=== PATIENT | female | born 2000 | race Caucasian/White ===

== ENCOUNTER 2024-07-22 08:24 | Outpatient (AMB) | payer BC, SELFPAY ==
--- NOTE | 2024-07-22 08:25 | AM.OFFWIN_ITS ---
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 Patient Tobacco Use Status: Never used Tobacco Allergies No Known Allergies Allergy (Verified 07/22/24 08:30) Do you need a note to return to daycare/school/sports/work: Yes HPI HPI Comments History of Present Illness Details 24 y/o female patient who [facility] with c/o SOB, Wheezing, Chest tightness and cough since Friday. She is Asthmatic and currently only uses Rescue Inhaler that does not work well. [facility] Medical History (Updated 07/22/24 @ 08:54 by Ynes Gonzales NP) Wheezing on auscultation Social History Patient Tobacco Use Status: Never used Tobacco Review of Systems Const All systems reviewed & are unremarkable except as noted in HPI and below Physical Exam Vital Signs: Last Vital Signs Pulse 95 07/22/24 08:28 BP 120/82 07/22/24 08:28 Pulse Ox 97 07/22/24 08:28 Oxygen Delivery Method Room Air 07/22/24 08:28 BMI result Body Mass Index 49.3 Const General: cooperative and no acute distress Nutritional Appearance: obese Orientation/consciousness: patient oriented x3 Resp Effort & Inspection: normal respiratory effort, audible wheezes and Actively coughing Auscultation: no crackles, no rales, rhonchi throughout and wheezes throughout Cardio Heart sounds: S1 normal heart sound present and S2 normal heart sound present Neuro General: patient oriented x3 Office Procedures Nebulizer Treatment Nebulizer Treatment [id number] RX initial, or Nebulizer Subsequent Treatment Office Meds ipratropium 0.5 mg-albuterol 3 mg (2.5 mg base)/3 mL nebulization soln Performing Provider: Ynes Gonzales NP Performing Location: [facility] Administered by: Ynes Gonzales NP on 07/22/24 09:00 Dose Route Admin Location Dispensed Lot Number Expiration Date NDC Agricultural [employer] 3 mL inhalation 3 mL [id number] 01/01/25 2754-0381-79 [facility] Assessment & Plan Assessment & Plan (1) Asthma with acute exacerbation: Code(s): J45.901 - Unspecified asthma with (acute) exacerbation Qualifiers: Asthma persistence: persistent Asthma severity: moderate Qualified Code(s): J45.41 - Moderate persistent asthma with (acute) exacerbation Plan: Ordered DuoNeb in office Tx Ordered Abx Ordered Prednisone (2) Wheezing on auscultation: Code(s): R06.2 - Wheezing Plan: Ordered DuoNeb in office Tx Ordered Abx Ordered Prednisone Orders: Orders AMB Nebulizer Treatment Today J45.41 - Moderate persistent asthma with (acute) exacerbation, R06.2 - Wheezing Medications: New azithromycin 500 mg PO DAILY 5 days 5 tabs 0RF J45.41 - Moderate persistent asthma with (acute) exacerbation albuterol sulfate 90 mcg/actuation 2 puffs inhalation Q4-6H PRN 8.5 grams 0RF shortness of breath or wheezing J45.41 - Moderate persistent asthma with (acu te) exacerbation, R06.2 - Wheezing prednisone 50 mg PO DAILY 5 days 5 tabs 0RF J45.41 - Moderate persistent asthma with (acute) exacerbation, R06.2 - Wheezing fluticasone furoate-vilanterol 100-25 mcg/dose (Breo Ellipta) 1 inh inhalation DAILY 60 ea 1RF J45.41 - Moderate persistent asthma with (acute) exacerbation, R06.2 - Wheezing doxycycline hyclate 100 mg PO BID 10 days 20 caps 0RF J45.41 - Moderate persistent asthma with (acute) exacerbation Coding Level of Care Code New Pt Level 4 (90064) Diagnoses Moderate persistent asthma with acute exacerbation J45.41 Asthma persistence: persistent Asthma severity: moderate Wheezing on auscultation R06.2 CPT Codes Nebulizer Treatment - Nebulizer Treatment, initial or subsequent: 81294- Nebulizer/MDI RX initial, or Nebulizer Subsequent Treatment ([id number]) Time Spent (min) 20
[2024-07-22 08:28] VITALS: BP 120/82; PULSE 95; O2SAT 97; BMI 49.3
== END 2024-07-22 08:57 | disposition home or self-care (01) ==
PROVIDERS: Visit Provider Nurse Practitioner Family
DX: J45.41 Moderate persistent asthma with (acute) exacerbation (principal); R06.2 Wheezing
CPT/HCPCS: 94640; 99204; J7620

== ENCOUNTER 2024-08-22 10:58 | Emergency (ER) | payer BC, SELFPAY ==
--- NOTE | ~2024-08-22 | XR_ITS ---
EXAMINATION: XR CHEST 1 VIEW CLINICAL INFORMATION: Pneumonia? COMPARISON: None TECHNIQUE: Single portable frontal view. Tubes and lines: None Lungs and pleura: Both lungs are clear. Heart and mediastinum: The mediastinum is within normal limits.. Bones/soft tissue: Skeletal structures included are normal for patient's age. XR/XR chest 1V IMPRESSION: No radiographic evidence of acute cardiopulmonary disease. Electronically signed by: Juan Francisco Munoz MD 08/22/2024 02:31 PM EDT
--- NOTE | ~2024-08-22 | US_ITS ---
EXAMINATION: US TRIPLEX LOWER EXTREMITY, BILATERAL CLINICAL INFORMATION: Bilateral lower extremity nodules COMPARISON: None available. TECHNIQUE: Color-flow triplex imaging with spectral analysis and compression Doppler were performed on the bilateral lower extremities. FINDINGS: Respiratory variation, normal compression and augmented flow are noted throughout the bilateral lower extremities. The visualized common femoral vein, superficial femoral vein, profunda femoral vein, popliteal vein and midcalf peroneal and posterior tibial venous segments show no evidence of deep venous thrombosis bilaterally. There is no Torres's cyst. US/US venous duplex LE BI IMPRESSION: No evidence of deep venous thrombosis involving the bilateral lower extremities. Electronically signed by: Lakshmi Goins MD 08/22/2024 12:26 PM EDT
--- NOTE | ~2024-08-22 | US_ITS ---
EXAMINATIONS: US EXTREMITY MUSCULOSKELETAL CLINICAL INFORMATION: bilateral leg nodules COMPARISON: None Technique: High frequency linear transducer utilized, Ultrasound soft tissue right legs areas of interest on both sides performed as outlined related to patient. FINDINGS: High-frequency evaluation of the area of palpable lump confirm solid homogeneous isoechoic pseudoencapsulated yaniv, situated within the subcutaneous fat measuring approximately 0.7 x 0.9 x 0.4 cm correlate with the area of palpable lump, although nonspecific, the ultrasound characteristics suggest most commonly lipomas. No other mass lesion. No adjacent cyst, lymph node, or other soft tissue anomalies US/US extremity nonvascular IMPRESSION: Probably subcutaneous lipoma, right leg cannot rule out other rare soft tissue neoplasms including liposarcoma, this could be further characterize with contrast enhanced MRI, if not performed would recommend attention to continuous surveillance with physical exam and follow-up ultrasound as needed to confirm stability. No discrete measurable mass in the left leg. Electronically signed by: Juan Francisco Munoz MD 08/22/2024 02:24 PM EDT
[2024-08-22 11:02] VITALS: BP 135/77; PULSE 106; RESP 20; TEMP 36.6; O2SAT 99; BMI 41.2
--- NOTE | 2024-08-22 11:10 | ECG_ITS ---
Test Reason : SOB Blood Pressure : / mmHG Vent. Rate : 094 BPM Atrial Rate : 094 BPM P-R Int : 132 ms QRS Dur : 084 ms QT Int : 370 ms P-R-T Axes : 069 063 020 degrees QTc Int : 462 ms Normal sinus rhythm T wave abnormality, consider inferior ischemia Abnormal ECG No previous ECGs available Referred By: Sachin Springer Electronically Signed By:ALYSIA WALLACE
--- NOTE | 2024-08-22 11:12 | ED_ITS ---
HPI - General Adult General Chief complaint: Dyspnea Stated complaint: Diff breathing Time Seen by Provider: 08/22/24 14:31 Source: patient and family ( Mother) Mode of arrival: ambulatory Limitations: no limitations History of Present Illness ED Provider: DR. Smith HPI narrative: 24-year-old female history of asthma presented with 3 days history of difficulty breathing, shortness of breath, nonproductive coughing, no fever, no chills, no recent travel, no lower extremity swelling or tenderness. Patient was seen and evaluated at urgent Care before coming to the ER received 2 nebulizer treatment and 40 mg of prednisone and was instructed to come to the ED for further evaluation because patient was satting 92% on room air. No prior history of hospitalization or intubation for bad asthma. Related Data Previous Rx's ?Medication ?Instructions ?Recorded albuterol sulfate 90 mcg/actuation 2 puff inhalation Q6H PRN 08/22/24 aerosol inhaler shortness of breath or wheezing #8.5 grams azithromycin 250 mg tablet See Rx Instructions PO .COMPLEX #6 08/22/24 (Zithromax Z-Jean-Pierre) tabs prednisone 20 mg tablet 20 mg PO BID #10 tabs 08/22/24 Allergies Allergy/AdvReac Type Severity Reaction Status Date / Time No Known Allergies Allergy Verified 08/22/24 11:09 Review of Systems 2 Review of Systems: all other systems are reviewed and are negative Constitutional: Reports as per HPI and Reports no additional constitutional complaints Eyes: Reports as per HPI and Reports no additional eye complaints Reports system reviewed and no additional complaints, except as documented Cardiovascular: Reports as per HPI and Reports no additional cardiovascular complaints Respiratory: Reports as per HPI and Reports no additional respiratory complaints Gastrointestinal: Reports as per HPI and Reports no additional gastrointestinal complaints Genitourinary: Reports no additional female genitourinary complaints Musculoskeletal: Reports no additional musculoskeletal complaints Skin/Breast: Reports system reviewed and no additional complaints, except as docu Psychiatric: Reports no additional psychiatric complaints Endocrine: Reports no additional endocrine complaints Hematologic/Lymphatic: Reports no additional hematologic/lymphatic complaints Allergic/Immunologic: Reports no additional allergic/immunologic complaints Reports system reviewed and no additional complaints, except as documented and Reports Abnormal speech present PMFSH Social History Social History Smoked in Last 30 Days: No Use of substances other than those prescribed or required for medical reasons: No Substance Use Type: Marijuana Substance Use Frequency: Daily Advance Directives: No Advance Directives Information Provided: Yes Patient : No Physical Exam ED Vital Signs: Vital Signs - 24 hr 08/22/24 11:02 08/22/24 13:56 08/22/24 14:04 Temperature 97.8 F 98.4 F Pulse Rate 106 H 84 116 H Respiratory Rate 20 18 Blood Pressure 135/77 143/66 H Pulse Oximetry 99 95 Oxygen Delivery Method Room Air Room Air 08/22/24 15:39 08/22/24 15:52 Temperature 98 F Pulse Rate 87 96 Respiratory Rate 18 18 Blood Pressure 113/66 Pulse Oximetry 95 Oxygen Delivery Method Room Air BMI result Body Mass Index 41.2 Vital signs have been reviewed and appear to be correct. Blood pressure elevated. Heart rate normal. Respiratory rate normal. Temperature normal. Oxygen saturation normal. Appearance: Alert. Oriented X3. No acute distress. Head: Normal external exam. Normocephalic. Atraumatic. No Vance signs noted. No raccoon eyes noted Eyes: PERRLA. EOMI. Conjunctiva and sclera normal. Eyelids normal. ENT: TM's Normal. Pharynx normal. Uvula midline. Moist mucous membranes. No trismus noted. No drooling noted. No muffled voice noted. Neck: Normal inspection. Neck supple. FROM. No adenopathy. Thyroid Normal. No meningeal signs. No neck mass noted. CVS: Normal heart rate and rhythm. Heart sound normal. No murmurs noted. Pulses normal throughout. Respiratory: No respiratory distress. Painless inspiration. Breath sounds normal. mild expiratory wheezing with prolonged expiration, no respiratory distress. Chest nontender. No accessory muscle usage noted or decreased air movement noted. Abdomen: Soft and nontender. Bowel sounds normal in all 4 quadrants. No distention noted. No organomegaly noted. No visible injury noted. Back: No CVA tenderness. Full range of motion noted. Skin: Skin warm and dry. Normal skin color. Normal skin turgor. No rashes/lesions/lacerations noted. Extremities: No lower extremity edema. Extremities exhibit normal range of motion. Extremities nontender. Neuro: Oriented X 3. Cranial nerve exam: II-XII are grossly intact No motor deficit. No sensory deficit. Reflexes normal. Course Course Course Narrative: RME: DOne by TOYIN Springer. 24-year-old female sent from urgent care for evaluation of shortness of breath. Patient states O2 saturation as low as 92% at urgent care. Patient states coughing and shortness of breath on exertion. Patient denies any fever or chills. Patient denies any recent long travel recent surgery. Patient states no relief with albuterol and steroids. Patient has secondary complaint his 1 month of bilateral lower extremity red nodules on anterior aspect of legs. Patient denies any calf pain. Lungs are positive for mild expiratory wheezing and diminished breath sounds. Bilateral lower extremity negative for swelling or pitting edema but positive for anterior nodules on palpation with some redness. Patient states redness has improved. EKG labs chest x-ray ultrasound ordered. Reevaluation(s) Reevaluation #1: Acute asthma exacerbation, normal O2 sat on room air , no acute respiratory distress. Patient is subjectively feels better after given bronchodilator and 40 mg of prednisone. Discharge Z-Jean-Pierre/ prednisone/ albuterol. Time: 15:23 Medications Administered Discontinued Medications Generic Name Dose Route Start Last Admin Trade Name Sheldonq PRN Reason Stop Dose Admin Albuterol Sulfate 2.5 mg/ 0 mg 08/22/24 13:51 08/22/24 13:54 Albuterol/Ipratropium 3 ml INHALE 08/22/24 13:52 5 dose ONCE ONE Administration Albuterol Sulfate 2.5 mg/ 0 mg 08/22/24 15:17 08/22/24 15:36 Albuterol/Ipratropium 3 ml INHALE 08/22/24 15:18 5 dose ONCE ONE Administration Prednisone 40 mg 08/22/24 15:09 08/22/24 15:56 Prednisone 20 Mg Tablet PO 08/22/24 15:10 40 mg ONCE ONE Administration Medical Decision Making Differential Diagnosis Differential Diagnoses: The differential diagnosis associated with the presentation includes ( Acute bronchitis, pneumonia, pneumothorax, pleural effusion, asthma exacerbation, viral upper respiratory infection, DVT.) Admission/Observation Consideration of admission/observation: Escalation of care including admission/observation considered Lab Data MDM Lab Attestation statement: I reviewed the patient's lab results. 08/22/24 11:27 08/22/24 11:27 Labs: Lab Results 08/22/24 Range/Units 11:27 WBC 7.7 (4.8-10.8) X10*3/uL RBC 4.89 (4.20-5.50) X10*6/uL Hgb 14.2 (12.0-16.0) g/dl Hct 41.0 (37.0-47.0) % MCV 83.8 (80.0-98.0) fL MCH 29.0 (27.0-33.0) pg MCHC 34.6 (31.0-35.0) g/dl RDW 11.9 (11.0-16.0) % Plt Count 248 (160-400) X10*3/uL MPV 11.1 (9.4-12.3) fL Immature Gran % (Auto) 0.4 (0.0-0.4) % Neut % (Auto) 70.8 (45-73) % Lymph % (Auto) 15.9 L (20-40) % Dale % (Auto) 6.8 (2-11) % Eos % (Auto) 5.6 H (0-4) % Baso % (Auto) 0.5 (0-2) % Lymph # (Auto) 1.2 (1.2-4.9) X10*3/uL Dale # (Auto) 0.5 (0.1-1.2) X10*3/uL Eos # (Auto) 0.4 (0.0-0.4) X10*3/uL Baso # (Auto) 0.0 (0.0-0.2) X10*3/uL Abs Immat Gran (auto) 0.03 (0.00-0.03) X10*3/uL Absolute Neuts (auto) 5.4 (2.0-8.3) x10*3/uL Absolute Nucleated RBC 0.000 (0.0-0.012) X10*3/uL Nucleated RBC % (auto) 0.0 (0.0-0.2) /100WBC ESR 4 (0-20) MM/HR PT 11.2 (10.9-12.4) SEC INR 1.0 (0.9-1.1) APTT 29.3 (26.0-36.8) SEC Sodium 139 (135-145) mmol/L Potassium 3.3 (3.3-5.1) mmol/L Chloride 109 H (96-108) mmol/L Carbon Dioxide 21 L (22-29) mmol/L Anion Gap 12 (12-20) BUN 13 (9-16) mg/dL Creatinine 0.88 (0.5-1.4) mg/dL Estim Creat Clear Calc 116.7 Estimated GFR > 60 Random Glucose 104 (60-115) mg/dL Calcium 9.2 (8.4-10.2) mg/dL Total Bilirubin 0.9 (0.0-1.0) mg/dL AST 13 (5-31) U/L ALT 11 (0-31) U/L Alkaline Phosphatase 63 (39-117) U/L Troponin I High Sens < 2.7 (<3.5-17.0) ng/L C-Reactive Protein 0.38 (< or = 0.50) mg/dL B-Natriuretic Peptide 16 (<100) pg/mL Total Protein 6.7 (6.5-8.0) g/dL Albumin 4.0 (3.5-5.0) g/dL Beta HCG, Quant < 2 mIU/mL Influenza Type A (PCR) NEGATIVE (Negative) Influenza Type B (PCR) NEGATIVE (Negative) RSV RNA Qual (PCR) NEGATIVE (Negative) SARS-CoV-2 RNA (RT-PCR) NEGATIVE (Negative) Independent Interpretation I performed an independent interpretation of an: Plain X-Ray ( Chest x-ray: No acute intrathoracic pathology.) and Ultrasound ( Venous ultrasound no DVT.) Radiology Impression Discussion of test interpretation with radiology: I have reviewed the radiologist's reading. Discharge Plan Discharge Clinical Impression: Asthma with exacerbation Patient Disposition: Home, Self-Care Instructions: Asthma (ED) Prescriptions: New prednisone 20 mg tablet 20 mg PO BID Qty: 10 0RF azithromycin [Zithromax Z-Jean-Pierre] 250 mg tablet See Rx Instructions .ROUTE .COMPLEX Qty: 6 0RF Rx Instructions: For 250 mg dose pack: take 500 mg today (day 1), then 250 mg for 4 days (days 2-5) albuterol sulfate 90 mcg/actuation HFA aerosol inhaler 2 puff inhalation Q6H PRN (Reason: shortness of breath or wheezing) Qty: 8.5 0RF Stand Alone Forms: Work/School Release Discharge Date/Time: 08/22/24 16:06 Print Language: Estonian
[2024-08-22 11:32] LABS: MANUAL DIFF FLAG NO
[2024-08-22 11:33] LABS: Basophils Percent Auto 0.5 % (0-2); Eosinophils Absolute Auto 0.4 X10*3/uL (0.0-0.4); Eosinophils Percent Auto 5.6 % (0-4); Hemoglobin 14.2 g/dl (12.0-16.0); Imm Gran Abs Auto 0.03 X10*3/uL (0.00-0.03); Imm Gran Pct Auto 0.4 % (0.0-0.4); Lymphocytes Absolute Auto 1.2 X10*3/uL (1.2-4.9); Lymphocytes Percent Auto 15.9 % (20-40); Mean Corpuscular HGB Conc 34.6 g/dl (31.0-35.0); Mean Corpuscular Volume 83.8 fL (80.0-98.0); Mean Platelet Volume 11.1 fL (9.4-12.3); Monocytes Absolute Auto 0.5 X10*3/uL (0.1-1.2); Monocytes Percent Auto 6.8 % (2-11); Neutrophils Absolute Auto 5.4 x10*3/uL (2.0-8.3); Neutrophils Percent Auto 70.8 % (45-73); Platelet Count 248 X10*3/uL (160-400); Red Blood Count 4.89 X10*6/uL (4.20-5.50); Red Cell Distribution Width 11.9 % (11.0-16.0); White Blood Count 7.7 X10*3/uL (4.8-10.8)
[2024-08-22 11:39] LABS: Prothrombin Time 11.2 SEC (10.9-12.4)
[2024-08-22 11:41] LABS: Partial Thromboplastin Time 29.3 SEC (26.0-36.8)
[2024-08-22 11:47] LABS: Alanine Aminotransferase 11 U/L (0-31); Alkaline Phosphatase 63 U/L (39-117); Anion Gap 12 (12-20); Aspartate Amino Transferase 13 U/L (5-31); Bilirubin Total 0.9 mg/dL (0.0-1.0); Blood Urea Nitrogen 13 mg/dL (9-16); C Reactive Protein 0.38 mg/dL (< or = 0.50); Calcium 9.2 mg/dL (8.4-10.2); Carbon Dioxide 21 mmol/L (22-29); Chloride 109 mmol/L (96-108); Creatinine Clr Calc Pharmacy 116.7; Estimated Glomerular Filt Rate > 60; Glucose Random 104 mg/dL (60-115); Potassium 3.3 mmol/L (3.3-5.1); Sodium 139 mmol/L (135-145); Total Protein 6.7 g/dL (6.5-8.0)
[2024-08-22 11:52] LABS: B Type Natriuretic Peptide 16 pg/mL (<100)
[2024-08-22 11:56] LABS: HCG Quantitative < 2 mIU/mL; Troponin-I High Sensitivity < 2.7 ng/L (<3.5-17.0)
[2024-08-22 12:10] LABS: Influenza A PCR NEGATIVE (Negative); Influenza B PCR NEGATIVE (Negative); Resp Syncy Virus RNA Qual PCR NEGATIVE (Negative); SARS COV2 PCR INHOUSE NEGATIVE (Negative)
[2024-08-22 12:15] LABS: Erythrocyte Sedimentation Rate 4 MM/HR (0-20)
[2024-08-22] MEDS: Albuterol Sulfate 2.5 MG, Albuterol/Iprat 2.5/0.5MG 3 ML 3 ML INHALE ×2 (13:54→15:36)
[2024-08-22 13:56] VITALS: PULSE 84; RESP 18; O2SAT 97
[2024-08-22 14:04] VITALS: BP 143/66; PULSE 116; TEMP 36.9; O2SAT 95
--- NOTE | 2024-08-22 14:07 | PC.NURSE ---
Pt comes to ED today with c/o SOB, wheezing, and pain with inspiration. VSS, afebrile, A&Ox3. RT at bedside with updraft in process. Awaiting imaging results.
[2024-08-22 15:39] VITALS: PULSE 87; RESP 18; O2SAT 96
[2024-08-22 15:52] VITALS: BP 113/66; PULSE 96; RESP 18; TEMP 36.6; O2SAT 95
[2024-08-22] MEDS: predniSONE 20 MG TABLET 40 MG PO (15:56)
== END 2024-08-22 16:06 | disposition home or self-care (01) ==
PROVIDERS: Physician Assistant; Emergency Provider Emergency Medicine
DX: J45.901 Unspecified asthma with (acute) exacerbation (principal); R06.02 Shortness of breath; R05.9 Cough, unspecified; R60.0 Localized edema; R10.2 Pelvic and perineal pain; R94.31 Abnormal electrocardiogram [ECG] [EKG]; Z03.818 Encounter for observation for suspected exposure to other biological agents ruled out; Z79.899 Other long term (current) drug therapy
CPT/HCPCS: 0241U; 36415; 71045; 76882; 80053; 83880; 84484; 84702; 85025; 85610; 85652; 85730; 86140; 93005; 93970; 94640; 99284; 99285

== ENCOUNTER 2024-09-22 12:29 | Outpatient (AMB) | payer BC, SELFPAY ==
[2024-09-22 12:32] VITALS: BP 104/76; PULSE 78; O2SAT 95; BMI 41.7
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
== END 2024-09-22 13:15 | disposition home or self-care (01) ==
PROVIDERS: Visit Provider Internal Medicine
DX: J45.40 Moderate persistent asthma, uncomplicated (principal); E66.01 Morbid (severe) obesity due to excess calories; F33.41 Major depressive disorder, recurrent, in partial remission; Z68.41 Body mass index [BMI] 40.0-44.9, adult; Z76.89 Persons encountering health services in other specified circumstances; Z86.59 Personal history of other mental and behavioral disorders; F43.10 Post-traumatic stress disorder, unspecified; K21.9 Gastro-esophageal reflux disease without esophagitis; R53.83 Other fatigue; R21 Rash and other nonspecific skin eruption

== ENCOUNTER → 2024-09-22 12:29 | Outpatient (BNVA) | payer BC, SELFPAY | PROVIDERS: Visit Provider Internal Medicine | DX: Z76.89 Persons encountering health services in other specified circumstances (principal); J45.40 Moderate persistent asthma, uncomplicated; E66.01 Morbid (severe) obesity due to excess calories; Z68.41 Body mass index [BMI] 40.0-44.9, adult; F33.41 Major depressive disorder, recurrent, in partial remission; Z23 Encounter for immunization; F43.10 Post-traumatic stress disorder, unspecified; K21.9 Gastro-esophageal reflux disease without esophagitis; R21 Rash and other nonspecific skin eruption; Z86.59 Personal history of other mental and behavioral disorders | CPT/HCPCS: 90471; 90656; 96127 ==

== ENCOUNTER 2024-09-23 07:49 | Outpatient (REF) | payer BC, SELFPAY ==
[2024-09-23 10:12] LABS: MANUAL DIFF FLAG NO
[2024-09-23 10:17] LABS: Basophils Percent Auto 0.8 % (0-2); Eosinophils Absolute Auto 0.4 X10*3/uL (0.0-0.4); Eosinophils Percent Auto 8.3 % (0-4); Hematocrit 43.3 % (37.0-47.0); Hemoglobin 14.3 g/dl (12.0-16.0); Imm Gran Abs Auto 0.01 X10*3/uL (0.00-0.03); Imm Gran Pct Auto 0.2 % (0.0-0.4); Lymphocytes Absolute Auto 1.6 X10*3/uL (1.2-4.9); Lymphocytes Percent Auto 33.1 % (20-40); Mean Corpuscular Volume 84.9 fL (80.0-98.0); Mean Platelet Volume 11.3 fL (9.4-12.3); Monocytes Absolute Auto 0.4 X10*3/uL (0.1-1.2); Monocytes Percent Auto 8.3 % (2-11); Neutrophils Absolute Auto 2.5 x10*3/uL (2.0-8.3); Neutrophils Percent Auto 49.3 % (45-73); Platelet Count 322 X10*3/uL (160-400); Red Cell Distribution Width 11.9 % (11.0-16.0)
[2024-09-23 10:44] LABS: Alanine Aminotransferase 17 U/L (0-31); Albumin Level 3.9 g/dL (3.5-5.0); Alkaline Phosphatase 62 U/L (39-117); Anion Gap 10 (12-20); Aspartate Amino Transferase 24 U/L (5-31); Bilirubin Total 0.9 mg/dL (0.0-1.0); Blood Urea Nitrogen 12 mg/dL (9-16); Calcium 9.1 mg/dL (8.4-10.2); Carbon Dioxide 25 mmol/L (22-29); Chloride 107 mmol/L (96-108); Cholesterol 204 mg/dL (<200); Estimated Glomerular Filt Rate > 60; Glucose Fasting 99 mg/dL (60-99); HDL Cholesterol 63 mg/dL (>40); LDL Cholesterol Calculated 125 mg/dL (<100); Sodium 138 mmol/L (135-145); Total Protein 6.6 g/dL (6.5-8.0); Triglycerides 80 mg/dL (<150)
[2024-09-23 10:52] LABS: Appearance Urine Clear; Color Urine Yellow; Glucose Urine UA Negative (Negative); Leukocyte Esterase Urine Negative (Negative); Nitrite Urine Negative (Negative); PH 6.5 (5.0-9.0); Urine Blood Negative (Negative); Urine Ketones Negative (Negative); Urine Protein Negative (Neg-Trace)
[2024-09-23 11:06] LABS: Ferritin 31 ng/mL (10-122); TSH reflex Free T4 1.73 uIU/mL (0.32-4.0)
[2024-09-23 11:11] LABS: Vitamin B12 1185 pg/mL (200-900)
[2024-09-27 16:03] LABS: Vitamin D 25-OH, D2 <4 ng/mL; Vitamin D 25-OH, D3 24 ng/mL; Vitamin D 25-OH, Total 24 ng/mL (30-100)
== END 2024-09-23 07:50 | disposition home or self-care (01) ==
LOC: HO.HMGCLDS 07:49
PROVIDERS: PCP Internal Medicine; Visit Provider Internal Medicine
DX: Z76.89 Persons encountering health services in other specified circumstances (principal); J45.40 Moderate persistent asthma, uncomplicated; E66.01 Morbid (severe) obesity due to excess calories; F33.9 Major depressive disorder, recurrent, unspecified; Z86.59 Personal history of other mental and behavioral disorders; F43.10 Post-traumatic stress disorder, unspecified; K21.9 Gastro-esophageal reflux disease without esophagitis; R53.83 Other fatigue
CPT/HCPCS: 36415; 80053; 80061; 81003; 82306; 82607; 82728; 84443; 85025

== ENCOUNTER 2024-11-30 13:39 | Outpatient (AMB) | payer BC, SELFPAY ==
[2024-11-30 13:42] VITALS: BP 112/78; PULSE 95; O2SAT 98; BMI 41.7
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
--- OUTSIDE RECORDS SUMMARY | 2024-11-30 13:42 | XMS_ITS ---
Author Organization [facility] - [facility] Address [address] [place] [address] Care Team Providers Care Supervisor Pipelines Name Role Phone Noemi Harvey Unavailable [phone] Margaret Jane Unavailable [phone] Kiana Mora Unavailable [phone] ALLERGIES No Known Allergies REASON FOR VISIT SORE THROAT / NO VOICE MEDICATIONS Medication SIG (Take, Route, Fr equency, Duration) Notes Start Date End Date Status FLUoxetine HCl 60 MG 1 tablet Oral for 30 days Active predniSONE 20 MG 2 tablets Orally Onc e a day for 5 days 10/30/2023 11/04/2023 Active SOCIAL HISTORY Tobacco Use: Social History Observation Description Date Details (start date - stop date) Never Smoker NA - NA Sex Assigned At : Social History Observation Description Sex Assigned At Unknown Tobacco Use/Smoking Question Answer Notes Are you a nonsmoker VITAL SIGNS Heart Rate 69 /min 10/30/2023 Blood pressure systolic 123 mm Hg 10/30/20 23 Blood pressure diastolic 75 mm Hg 023 Height 64 in 10/30/2023 Height-cm 162.56 cm 10/30/2023 Weight 203 lbs 10/30/2023 Weight-kg 92.08 kg 10/30/2023 BMI 34.84 kg/m2 10/30/2023 Respiratory Rate 14 /min 10/30/2023 Oximetry 98 % 10/30/2023 Aide Wade, DRAKE 10/30/2023 09:18:42 AM EST > Encounters Encounter Location Date Provider Diagnosis [facility] [place] [address] [address] 10/30/2023 Kiana Mora Laryngitis J04.0 ASSESSMENTS Encounter Date Diagnosis Assessment Notes Treatment Notes Treatment Clinical Notes 10/30/2023 Laryngitis (ICD-10 - J04.0) Laryngitis material was printed, Laryngitis home care material was printed. Prednisone 40 mg daily for 5 days. Continue use of Chloraseptic sprays, warm salt water gargles. Follow up with ENT to discuss ongoing management of chronic laryngitis. PLAN OF TREATMENT Medication Medication Name Sig Start Date Stop Date Notes predniSONE 20 MG 2 tablets Orally Once a day for 5 days 11/04/2023 Treatment Notes Assessment Notes Laryngitis Laryngitis material was printed, Laryngitis home care material was printed. Prednisone 40 mg daily for 5 days. Continue use of Chloraseptic sprays, warm salt water gargles. Follow up with ENT to discuss ongoing management of chronic laryngitis. Progress Notes * Examination Category Sub-Category Detail Notes General Examination GENERAL APPEARANCE: alert, w ell hydrated, in no distress HEAD: normocephalic, atrau matic EYES: pupils equal, round, reactive to light and accommodation EARS: Bilateral TMs withou t erythema, bulging, dullness, or loss of landmarks. Bilateral ear canals are within normal limits, external ear is within normal limits. THROAT: posterior oropharynx without erythema, no tonsillar swelling or exudate. reveal a midline and without swelling Or erythema. Mucous membranes moist. NECK/THYROID: neck supple, full ra nge of motion, no cervical lymphadenopathy HEART: no murmurs, regular rate and rhythm, S1, S2 normal LUNGS: clear to auscultatio n bilaterally NEUROLOGIC: alert and oriented x 3 , moving all extremities , gait normal SKIN: no suspicious lesion s, warm and dry History and Physical Notes * HPI (History of Present Illness) Category Sub-Category Detail Notes Nursing Initial Assessment Nursing Asses sment (observation): No acute distress. Voice is very soft, strained Nursing Assessment (subjective): Patient presents to urgent care with loss of voice. She was seen last week for same symptoms and prescribed medication. Symptoms have not resolved.
--- OUTSIDE RECORDS SUMMARY | 2024-11-30 13:42 | XMS_ITS ---
Author Organization [facility] - [facility] Address [address] [place] [address] Care Team Providers Care Director On Air Name Role Phone HarveyNoemi naik Unavailable [phone] Althea DEAL, Margaret Unavailable REASON FOR VISIT duplicate visit, disregard MEDICATIONS Medication SIG (Take, Route, Fr equency, Duration) Notes Start Date End Date Status FLUoxetine HCl 40 MG Oral for 30 Days Active predniSONE 20 MG 1 tablet Orally Once a day for 5 days 07/03/2023 07/08/2023 Active Encounters Encounter Location Date Provider Diagnosis [facility] [place] [address] [place] [address] 07/03/2023 Margaret Oh PLAN OF TREATMENT No Information
--- OUTSIDE RECORDS SUMMARY | 2024-11-30 13:42 | XMS_ITS | Patient Health Record ---
Author Organization [facility] - [facility] Address [address] [place] [address] Care Team Providers Care Respiratory Supervisor Name Role Phone Noemi Harvey Unavailable [phone] Althea DEAL, Margaret Unavailable [phone] ALLERGIES No Known Allergies REASON FOR REFERRAL No Information MEDICATIONS Medication SIG (Take, Route, Fr equency, Duration) Notes Start Date End Date Status FLUoxetine HCl 60 MG 1 tablet Oral for 30 days Active SOCIAL HISTORY Tobacco Use: Social History Observation Description Date Details (start date - stop date) Never Smoker NA - NA Sex Assigned At : Social History Observation Description Sex Assigned At Unknown Tobacco Use/Smoking Question Answer Notes Are you a nonsmoker PLAN OF TREATMENT Pending Test Test Name Order Date CT Scan : M-Facial W/O Contrast 07/03/20 23 [place] 10/22/2023 POC Rapid Strep 10/22/2023 Insurance Providers Payer Name Payer Address Payer Phone Subscriber Number Group Number Insured Name Patient Relationship to Insured Coverage Start Date Coverage End Date PPO [id number] Yani Gar Self - patient is the insured 3 SYSTEM ASSIGNED CODE null, null Other 3 MEDICAL (GENERAL) HISTORY Medical History History ICD Code asthma allergies bulimia Surgical History Surgery Date(Month/Year) RIGHT FOOT
--- OUTSIDE RECORDS SUMMARY | 2024-11-30 13:42 | XMS_ITS ---
Author Organization [facility] - [facility] Address [address] [place] [address] Care Team Providers Care Glost Tile Sorter Name Role Phone Noemi Harvey Unavailable [phone] Althea DEAL, Margaret Unavailable [phone] ALLERGIES No Known Allergies RESULTS Component Value Reference Range Notes POC Rapid Strep (Not yet rev iewed by provider) Interpretation: Performing Lab: Notes/Report: Strep Negative Negative REASON FOR VISIT sore throat MEDICATIONS Medication SIG (Take, Route, Frequency, Duration) Notes Start Date End Date Status FLUoxetine HCl 60 MG 1 tablet Oral for 30 days Active methylPREDNISolone 4 MG as directed Oral ly as directed for 6 10/22/2023 10/28/2023 Active SOCIAL HISTORY Tobacco Use: Social History Observation Description Date Details (start date - stop date) Never Smoker NA - NA Sex Assigned At : Social History Observation Description Sex Assigned At Unknown Tobacco Use/Smoking Question Answer Notes Are you a nonsmoker VITAL SIGNS Temperature 97.9 degrees Fahrenheit 10/22/20 23 Heart Rate 90 /min 10/22/2023 Blood pressure systolic 133 mm Hg 10/22/20 23 Blood pressure diastolic 78 mm Hg 023 Height 64 in 10/22/2023 Height-cm 162.56 cm 10/22/2023 Weight 203 lbs 10/22/2023 Weight-kg 92.08 kg 10/22/2023 BMI 34.84 kg/m2 10/22/2023 Respiratory Rate 16 /min 10/22/2023 Oximetry 98 % 10/22/2023 Arianna Zamora, RN 10/22/2023 08:30:40 AM EST > Encounters Encounter Location Date Provider Diagnosis [facility] [place] [address] [place] [address] 10/22/2023 Noemi Harvey Laryngitis, acute J04.0 ASSESSMENTS Encounter Date Diagnosis Assessment Notes Treatment Notes Treatment Clinical Notes 10/22/2023 Laryngitis, acute (ICD-10 - J04.0) Rest and drink plenty of fluids. Cepacol throat lozenges. Try warm saltwater gargles and teaspoons of honey. Chloraseptic spray may be helpful for throat pain as well. Alternate Tylenol and Motrin every 4 hr as needed for pain. start Medrol Dosepak rest voice as much as possible, Laryngitis material was printed PLAN OF TREATMENT Medication Medication Name Sig Start Date Stop Date Notes methylPREDNISolone 4 MG as directed Oral ly as directed for 6 10/22/2023 10/28/2023 Treatment Notes Assessment Notes Laryngitis, acute Rest and drink plenty of fluids. Cepacol throat lozenges. Try warm saltwater gargles and teaspoons of honey. Chloraseptic spray may be helpful for throat pain as well. Alternate Tylenol and Motrin every 4 hr as needed for pain. start Medrol Dosepak rest voice as much as possible, Laryngitis material was printed Pending Test Test Name Order Date [place] [place] 10/22/2023 POC Rapid Strep 10/22/2023 Next Appt Details Follow Up: prn, Reason: Procedure Notes * Category Sub-Category Detail Notes Specimen Collection Type of specimen collected: throat: Noah Talbert Gilda, RN 10/22/2023 08:39:24 AM EST > Performed by: Nurse Arianna Zamora RN 10/22/2023 08:39:31 AM EST > , History and Physical Notes * HPI (History of Present Illness) Category Sub-Category Detail Notes Nursing Initial Assessment Nursing Assessment (o bservation): No acute distress Nursing Assessment (subjective): Patient present to reporting lost voice X 8 days.
== END 2024-11-30 14:26 | disposition home or self-care (01) ==
PROVIDERS: PCP Internal Medicine; Visit Provider Internal Medicine
DX: J45.40 Moderate persistent asthma, uncomplicated (principal); R21 Rash and other nonspecific skin eruption; Z86.59 Personal history of other mental and behavioral disorders; F43.10 Post-traumatic stress disorder, unspecified; K21.9 Gastro-esophageal reflux disease without esophagitis

== ENCOUNTER 2025-02-16 11:06 | Outpatient (AMB) | payer BC, SELFPAY ==
--- NOTE | 2025-02-16 11:54 | MHC.OFFWIV ---
Intake Vital Signs 02/16/25 11:55 Height 5 ft 4 in Weight 243 lb BMI 41.7 BP 118/72 Blood Pressure Location Lt brachial Position Sitting Pulse 66 Pulse Source Pulse Oximeter Temp 98.0 F Temp Source Oral Pulse Oximetry (%) 98 Oxygen Delivery Method Room Air Intake Visit Reasons: EP can't hear out of the LT ear Intake Note: Pt presents to the office today for c/o left ear hearing loss x4 days. Patient Tobacco Use Status: Never used Tobacco Allergies No Known Allergies Allergy (Verified 02/16/25 11:54) HPI EP can't hear out of the LT ear HPI Details This is a 24-year-old female patient who presents to the walk-in clinic today with report of hearing loss for the last 4 days on the left side. Also reports sinus pressure/headache. Has been taking Sudafed/Julia daily as usual for her allergies. Denies any fever/chills or other sick symptoms. [facility] Medical History Wheezing on auscultation Family History Maternal Uncle Substance use disorder Social History Housing: House Patient Tobacco Use Status: Never used Tobacco e-Cigarette/Vaping Use: Never Used Substance Use Type: Marijuana service: No Cognitive needs: No Hearing needs: No Vision needs: No Review of Systems Const All systems reviewed & are unremarkable except as noted in HPI and below Physical Exam Vital Signs: Last Vital Signs Temp 98.0 F 02/16/25 11:55 Pulse 66 02/16/25 11:55 BP 118/72 02/16/25 11:55 Pulse Ox 98 02/16/25 11:55 Oxygen Delivery Method Room Air 02/16/25 11:55 BMI result Body Mass Index 41.7 Const General: cooperative, healthy appearing, comfortable and no acute distress Limitations: no limitations HEENT Head: Yes normal to inspection Ears: external ears normal, TM normal on the right and TM abnormal wth effusion purulent on the left and with loss of landmarks General nose exam: Normal external nose present Face and sinus: Yes sinus tenderness (frontal/maxillary) Neck Neck: Yes no lymphadenopathy Resp Effort & Inspection: normal respiratory effort Auscultation: clear to auscultation bilaterally Cardio Rate: regular rate Rhythm: regular rhythm Skin General skin exam: no rashes or lesions noted Extrem General: Yes capillary refill normal and Yes no clubbing, cyanosis or edema Psych Appearance: grossly normal Mental Status: mental status grossly normal Speech and movement: Normal speech and movement present Assessment & Plan Assessment & Plan (1) Left otitis media with effusion: Code(s): H65.92 - Unspecified nonsuppurative otitis media, left ear Plan: Augmentin for left OM. Reviewed indications, use, possible side effects of medication. Advised her to try some Benadryl at bedtime as this may help with sinus/ear pressure. If she does not improve with treatment, or symptoms worsen/new symptoms develop, she can return to the clinic for further evaluation. She verbalizes understanding and agrees to plan. Medications: New amoxicillin-pot clavulanate 875-125 mg 1 tab PO BID 7 days 14 tabs 0RF H65.92 - Unspecified nonsuppurative otitis media, left ear Coding Level of Care Code Est Pt Level 4 (25526) Diagnoses Left otitis media with effusion H65.92
[2025-02-16 11:55] VITALS: BP 118/72; PULSE 66; TEMP 36.7; O2SAT 98; BMI 41.7
--- OUTSIDE RECORDS SUMMARY | 2025-02-16 13:28 | XMS_ITS ---
Author Organization [facility] Address [address] [place] [address] Care Team Providers Care Over Short And Damage Clerk Name Role Phone Noemi Harvey Unavailable [phone] Margaret Jane Unavailable Kiana Mora Unavailable [phone] ALLERGIES No Known Allergies REASON FOR VISIT [...] > Encounters Encounter Location Date Provider Diagnosis [facility] [place] [address] [place] [address] 10/30/2023 Kiana Mora Laryngitis J04.0 ASSESSMENTS Encounter [...]
--- OUTSIDE RECORDS SUMMARY | 2025-02-16 13:28 | XMS_ITS | Patient Health Record ---
Author Organization [facility] Address [address] [place] [address] Care Team Providers Care Manager Program Management Name Role Phone Noemi Harvey Unavailable [phone] Althea DEAL, Margaret Unavailable ALLERGIES No Known Allergies REASON FOR REFERRAL [...] M-Facial W/O Contrast 07/03/20 23 [place] [place] 10/22/2023 POC Rapid Strep 10/22/2023 Insurance Providers Payer Name Payer Address Payer Phone Subscriber Number Group Number Insured Name Patient Relationship to Insured Coverage Start Date Coverage End Date PPO [id number] Yani Gar Self - patient is the insured 3 SYSTEM ASSIGNED CODE null, null Other 3 MEDICAL (GENERAL) HISTORY Medical History History ICD Code asthma allergies bulimia Surgical History Surgery Date(Month/Year) RIGHT FOOT
--- OUTSIDE RECORDS SUMMARY | 2025-02-16 13:28 | XMS_ITS | Continuity of Care Document ---
Author Organization [facility]. If a dditional information is needed, contact Health Information Management at [phone] Address [address] [place] [address] Phone Care Team Providers Care Dry Cleaning Counter Clerk Name Role Phone Unavailable Unavailable Unavailable Unavailable Unavailable Unavailable Unavailable Unavailable Unavailable Unavailable Unavailable Unavailable Problems Laryngitis Onset:30-Sep-2022 ROGERS Siddiqui Pharyngitis Onset:30-Sep-2022 ROGERS Siddiqui Renewal of prescription Onset:31-Jul-2022 ROGERS Franklin Allergies and Adverse Reactions No Known Allergies(Allergy) Onset: 04-Dec-2022 Medications FLUoxetine 10 MG Oral Capsul e Start:30-Sep-2022 Q-DANYEL INHALER Start:31-Jul-2022 [id number] 200 ACTUAT albuter ol 0.09 MG/ACTUAT Metered Dose Inhaler [ProAir];1-2 INH Q4H Start:31-Jul-2022 Comments:1-2 PUFF INH Q4H [id number] 200 ACTUAT albuter ol 0.09 MG/ACTUAT Metered Dose Inhaler [ProAir];1 PUFF INH Q4H Start:31-Jul-2022 Comments:1 PUFF INH Q4H As Needed for sob/wheezing
--- OUTSIDE RECORDS SUMMARY | 2025-02-16 13:28 | XMS_ITS ---
Author Organization [facility] - [facility] Address [address] [place] [address] Care Team Providers Care Street Railway Line Installer Name Role Phone Noemi Harvey Unavailable [phone] Althea DEAL, Margaret Unavailable [phone] ALLERGIES No Known Allergies RESULTS Component [...] > Encounters Encounter Location Date Provider Diagnosis [facility] [place] [address] [place] [address] 10/22/2023 Noemi Harvey Laryngitis, acute J04.0 ASSESSMENTS [...] Test Test Name Order Date [place] [place] 10/22/2023 POC Rapid Strep 10/22/2023 Next Appt [...]
== END 2025-02-16 12:39 | disposition home or self-care (01) ==
PROVIDERS: PCP Internal Medicine; Visit Provider Nurse Practitioner Family
DX: H65.92 Unspecified nonsuppurative otitis media, left ear (principal)

== ENCOUNTER 2025-05-27 08:40 | Outpatient (REF) | payer BC, SELFPAY ==
[2025-05-27 10:27] LABS: MANUAL DIFF FLAG NO
[2025-05-27 10:43] LABS: Basophils Percent Auto 0.5 % (0-2); Eosinophils Absolute Auto 0.3 X10*3/uL (0.0-0.4); Imm Gran Abs Auto 0.01 X10*3/uL (0.00-0.03); Imm Gran Pct Auto 0.3 % (0.0-0.4); Lymphocytes Percent Auto 26.6 % (20-40); Mean Corpuscular HGB Conc 33.3 g/dl (31.0-35.0); Mean Corpuscular Hemoglobin 27.7 pg (27.0-33.0); Mean Platelet Volume 11.5 fL (9.4-12.3); Monocytes Absolute Auto 0.5 X10*3/uL (0.1-1.2); Monocytes Percent Auto 13.6 % (2-11); Neutrophils Absolute Auto 1.8 x10*3/uL (2.0-8.3); Platelet Count 242 X10*3/uL (160-400); Red Blood Count 5.42 X10*6/uL (4.20-5.50); Red Cell Distribution Width 12.4 % (11.0-16.0); White Blood Count 3.7 X10*3/uL (4.8-10.8)
[2025-05-27 11:16] LABS: Alanine Aminotransferase 18 U/L (0-31); Albumin Level 4.6 g/dL (3.5-5.0); Alkaline Phosphatase 65 U/L (39-117); Anion Gap 13 (12-20); Aspartate Amino Transferase 25 U/L (5-31); Bilirubin Total 0.8 mg/dL (0.0-1.0); Blood Urea Nitrogen 9 mg/dL (9-16); Calcium 9.3 mg/dL (8.4-10.2); Carbon Dioxide 22 mmol/L (22-29); Chloride 107 mmol/L (96-108); Cholesterol 196 mg/dL (<200); Estimated Glomerular Filt Rate > 60; Glucose Fasting 89 mg/dL (60-99); HDL Cholesterol 58 mg/dL (>40); LDL Cholesterol Calculated 122 mg/dL (<100); Sodium 138 mmol/L (135-145); Total Protein 7.4 g/dL (6.5-8.0); Triglycerides 84 mg/dL (<150)
[2025-05-27 11:33] LABS: Vitamin B12 1857 pg/mL (200-900)
[2025-05-27 11:34] LABS: TSH reflex Free T4 1.64 uIU/mL (0.32-4.0)
[2025-05-30 22:34] LABS: Thyroglobulin Antibodies <1 IU/mL (< or = 1)
[2025-05-31 10:38] LABS: Vitamin D 25-OH, D2 <4 ng/mL; Vitamin D 25-OH, D3 50 ng/mL; Vitamin D 25-OH, Total 50 ng/mL (30-100)
== END 2025-05-27 08:41 | disposition home or self-care (01) ==
LOC: HO.HMGCLDS 08:40
PROVIDERS: PCP Internal Medicine; Visit Provider Internal Medicine
DX: Z00.01 Encounter for general adult medical examination with abnormal findings (principal); Z76.89 Persons encountering health services in other specified circumstances; Z13.6 Encounter for screening for cardiovascular disorders; J45.40 Moderate persistent asthma, uncomplicated; K21.9 Gastro-esophageal reflux disease without esophagitis; F43.10 Post-traumatic stress disorder, unspecified; F33.41 Major depressive disorder, recurrent, in partial remission; Z83.49 Family history of other endocrine, nutritional and metabolic diseases
CPT/HCPCS: 36415; 80053; 80061; 82306; 82607; 84443; 85025; 86800; 96127

== ENCOUNTER 2025-05-27 08:40 | Outpatient (AMB) | payer BC, SELFPAY ==
--- NOTE | 2025-05-27 08:43 | MHC.PC.OV ---
Vital Signs 05/27/25 08:44 Height 5 ft 4 in Weight 240 lb 8 oz BMI 41.3 BP 138/82 Blood Pressure Location Rt brachial Position Sitting Pulse 83 Pulse Source Pulse Oximeter Temp 97.2 F Temp Source Temporal Artery Scan Pulse Oximetry (%) 96 Oxygen Delivery Method Room Air Intake Visit Reasons: PE Allergies No Known Allergies Allergy (Verified 05/27/25 08:43) Medication List - Last Reconciled 05/27/25 by Joyce Goins MD albuterol sulfate 90 mcg/actuation 2 puffs inhalation Q4-6H PRN 90 days albuterol sulfate 90 mcg/actuation 2 puffs inhalation Q6H PRN beclomethasone dipropionate 80 mcg/actuation mcg inhalation clobetasol 0.05% 1 appl topical BID 2 weeks dextroamphetamine-amphetamine 10 mg ER 15 mg PO QAM PRN fluoxetine 30 mg PO DAILY fluticasone propion-salmeterol 250-50 mcg/dose (Wixela Inhub) 1 inh inhalation BID 90 days Tobacco use date assessed: 05/27/25 Dental Screening Dental Screen Date: 05/27/25 Did you have a dental visit in the last 12 months?: Yes Did you have a dental problem in the last 6 months where you did not have access to dental care?: No Was dental information given to patient?: Patient has dentist HPI PE HPI Details History of Present Illness - The patient is a 25-year-old female presenting with a routine physical examination and management of chronic conditions. - Asthma: The patient reports that her asthma has improved since she stopped smoking and continues to use her inhaler as needed. - Allergic rhinitis: The patient experiences throat irritation and ear popping, likely due to prolonged air conditioner use during a heatwave. - Vitamin B12 excess: The patient was taking vitamin B12 for energy, but her levels were found to be elevated at 1000, above the upper limit of 900. - Vitamin D deficiency: The patient is currently taking vitamin D supplements to address low levels. - Anxiety and depression: The patient is on fluoxetine, which was recently reduced from 40 mg to 30 mg. Flu Psychiatry . - Family history: The patient's grandmother has Iasbelle's thyroiditis, and the patient is aware of the potential hereditary nature of thyroid issues. Health Maintenance - Referral to OBGYN for follow-up and potential Pap smear. - Discussion of weight management strategies, including potential referral to a perforator loader or weight loss program. - Recommendation to stop vitamin B12 supplementation due to elevated levels. - Continuation of vitamin D supplementation for deficiency. Medications - Fluoxetine 30 mg for anxiety and depression - Wixela for asthma management - Albuterol inhaler for asthma management Patient Instructions - Stop taking vitamin B12 supplements due to high levels. - Continue taking vitamin D supplements as prescribed. - Schedule and attend follow-up with OBGYN for further evaluation. - Consider consulting a perforator loader or joining a weight loss program for better weight management. - refills sent for inhalers f/u 6 M, and PE in one year Review of Systems - General: No fever no chills - Neurological: No headaches no dizziness - Ear nose throat: No sore throat no hearing difficulty no ear pain - Cardiovascular: No syncope, no chest pain, no palpitations - Gastrointestinal: No nausea vomiting or diarrhea - Endocrine: No polyuria polydipsia no heat intolerance - Genitourinary: No dysuria - Skin: No new complaints Physical Exam General: Cooperative, healthy appearing, comfortable, no acute distress Orientation: Patient oriented x3 Head: Normal to inspection Ears: Ears are fine, no acute findings Nose: Normal external nose present Face and sinus: Normal facial exam Eyes: Appearance normal, extraocular movement intact pupils reactive Neck: Normal visual inspection and supple Respiratory: Normal respiratory effort and able to speak in complete sentences. Clear to auscultation, no stridor. Cough present with phlegm, tinted yellow Cardiovascular: S1 and S2 RRR GI: Normal to inspection. Soft to palpation and nontender Skin: Turgor normal, no acute findings Neuro: Patient oriented x3, motor sensory intact, balance intact, tandem pass Extremities: Normal to inspection, no swelling PFSH Medical History Wheezing on auscultation Family History Maternal Uncle Substance use disorder Social History Housing: House Patient Tobacco Use Status: Never used Tobacco e-Cigarette/Vaping Use: Never Used Substance Use Type: Marijuana service: No Cognitive needs: No Hearing needs: No Vision needs: No Questionnaire PHQ-9 Over the last 2 weeks, how often have you been bothered by any of the following problems? 1. Little interest or pleasure in doing things: more than half the days 2. Feeling down, depressed, or hopeless: more than half the days 3. Trouble falling or staying asleep, or sleeping too much: more than half the days 4. Feeling tired or having little energy: more than half the days 5. Poor appetite or overeating: more than half the days 6. Feeling bad about yourself - or that you are a failure or have let yourself or your family down: more than half the days 7. Trouble concentrating on things, such as reading the newspaper or watching television: not at all 8. Moving or speaking so slowly that other people could have noticed. Or the opposite - being so fidgety or restless that you have been moving around a lot more than usual: several days 9. Thoughts that you would be better off or of hurting yourself in some way: not at all Total score: 13 Depression Screening Interpretation: Positive Depression Screening Follow-up: Existing condition and In treatment Depression Screening Done: Yes 34396 - PHQ-9 Billing: Yes Source: Developed by Drs. Kota Orta, Lillie Morales, Walt Elizondo and colleagues, with an educational abhishek from [employer]. Thrive Questionnaire Date Thrive assessed: 05/24/25 I am a: Patient What is your living situation today?: I have a steady place to live Within the past 12 months, did the food you bought not last and you didn't have the money to get more?: Never true Within the past 12 months, did you worry whether your food would run out before you got money to buy more?: Never true Do you have trouble paying for medicines?: Yes Do you have trouble getting transportation to medical appointments?: No Do you have trouble paying your heating and electricity bill?: No Do you have trouble taking care of your child, family member or friend?: No Do you have trouble with day-to-day activities such as bathing, preparing meals, shopping, managing finances, etc.?: No Are you currently unemployed and looking for a job?: No Are you interested in more education?: Yes Please select the resources that you would like help with: None Currently or been in a relationship where the following occur: No concerns reported THRIVE Score: 0 AUDIT C Alcohol Use Questionnaire (AUDIT-C) 1. How often do you have a drink containing alcohol?: Monthly or less 2. How many drinks containing alcohol do you have on a typical day when you are drinking?: 1 or 2 3. How often do you have six or more drinks on one occasion?: Never Total Score: 1 STEPHANIE-7 AMB Questionnaire STEPHANIE-7 Date STEPHANIE - 7 assessed: 05/27/25 Feeling nervous, anxious, or on edge: 0 = Not at all Not being able to stop or control worryin = Not at all Worrying too much about different things: 1 = Several days Trouble relaxin = Several days Being so restless that it is hard to sit still: 0 = Not at all Becoming easily annoyed or irritable: 0 = Not at all Feeling afraid as if something awful might happen: 0 = Not at all Total STEPHANIE-7 score (0-4 normal; 5-9 mild; 10-14 moderate; 15-21 severe): 2 Source: Developed by Drs. Kota Orta, Lillie Morales, Walt Elizondo and colleagues, with an educational abhishek from [employer]. STEPHANIE-7 Assessment Billing STEPHANIE-7 Assessment Tool: STEPHANIE-7 Assessment 44431 Physical exam (Primary Care) Vital Signs: Last Vital Signs Temp 97.2 F 05/27/25 08:44 Pulse 83 05/27/25 08:44 BP 138/82 05/27/25 08:44 Pulse Ox 96 05/27/25 08:44 Oxygen Delivery Method Room Air 05/27/25 08:44 BMI result Body Mass Index 41.3 Tobacco/Smoking Status: Tobacco use Status Tobacco use date assessed 05/27/25 05/27/25 08:48 Patient Tobacco Use Status Never used Tobacco 05/27/25 08:48 e-Cigarette/Vaping Use Never Used 05/27/25 08:48 PHQ-9: PHQ-9 Score PHQ-9: Total score 13 05/27/25 09:01 Depression Screening Interpretation: Positive Depression Screening Follow-up: Existing condition and In treatment Thrive Assessment: Date of Thrive Assessment Date Thrive assessed 05/24/25 05/27/25 08:48 Currently or been in a relationship where the following occur: No concerns reported Coding Level of Care Code Est Pt Level 3 (66166) Est Pt Prev Care 18-39y(31846) Diagnoses Encounter for general adult medical examination with abnormal findings Z00.01 Moderate persistent asthma without complication J45.40 Asthma complication type: uncomplicated Chronic GERD K21.9 PTSD (post-traumatic stress disorder) F43.10 Recurrent major depressive disorder, in partial remission F33.41 Active/Remission status: in partial remission Morbid obesity due to excess calories E66.01 Family history of Isabelle thyroiditis Z83.49 Additional Codes STEPHANIE-7 Assessment Billing - STEPHANIE-7 Assessment Tool: STEPHANIE-7 Assessment 00812 ([id number]) PHQ-9 - 35878 - PHQ-9 Billing: Yes ([id number]) Assessment & Plan Assessment & Plan (1) Encounter for general adult medical examination with abnormal findings: Code(s): Z00.01 - Encounter for general adult medical examination with abnormal findings Category: Medical (2) Asthma, moderate persistent: Code(s): J45.40 - Moderate persistent asthma, uncomplicated Category: Medical Qualifiers: Asthma complication type: uncomplicated Qualified Code(s): J45.40 - Moderate persistent asthma, uncomplicated (3) Chronic GERD: Code(s): K21.9 - Gastro-esophageal reflux disease without esophagitis Category: Medical (4) PTSD (post-traumatic stress disorder): Code(s): F43.10 - Post-traumatic stress disorder, unspecified Category: Medical (5) Major depression, recurrent: Code(s): F33.9 - Major depressive disorder, recurrent, unspecified Category: Medical Qualifiers: Active/Remission status: in partial remission Qualified Code(s): F33.41 - Major depressive disorder, recurrent, in partial remission (6) Morbid obesity due to excess calories: Code(s): E66.01 - Morbid (severe) obesity due to excess calories Category: Medical (7) Family history of Isabelle thyroiditis: Code(s): Z83.49 - Family history of other endocrine, nutritional and metabolic diseases Category: Medical Plan History of Present Illness - The patient is a 25-year-old female presenting with a routine physical examination and management of chronic conditions. - Asthma: The patient reports that her asthma has improved since she stopped smoking and continues to use her inhaler as needed. - Allergic rhinitis: The patient experiences throat irritation and ear popping, likely due to prolonged air conditioner use during a heatwave. - Vitamin B12 excess: The patient was taking vitamin B12 for energy, but her levels were found to be elevated at 1000, above the upper limit of 900. - Vitamin D deficiency: The patient is currently taking vitamin D supplements to address low levels. - Anxiety and depression: The patient is on fluoxetine, which was recently reduced from 40 mg to 30 mg. Flu Psychiatry . - Family history: The patient's grandmother has Isabelle's thyroiditis, and the patient is aware of the potential hereditary nature of thyroid issues. Health Maintenance - Referral to OBGYN for follow-up and potential Pap smear. - Discussion of weight management strategies, including potential referral to a perforator loader or weight loss program. - Recommendation to stop vitamin B12 supplementation due to elevated levels. - Continuation of vitamin D supplementation for deficiency. Medications - Fluoxetine 30 mg for anxiety and depression - Wixela for asthma management - Albuterol inhaler for asthma management Patient Instructions - Stop taking vitamin B12 supplements due to high levels. - Continue taking vitamin D supplements as prescribed. - Schedule and attend follow-up with OBGYN for further evaluation. - Consider consulting a perforator loader or joining a weight loss program for better weight management. - refills sent for inhalers f/u 6 M, and PE in one year Orders: Orders Complete Blood Count Auto Diff Today F33.41 - Major depressive disorder, recurrent, in partial remission, F43.10 - Post-traumatic stress disorder, unspecified, J45.40 - Moderate persistent asthma, uncomplicated, K21.9 - Gastro-esophageal reflux disease without esophagitis, Z76.89 - Persons encountering health services in other specified circumstances Comprehensive [place]. Panel Fast Today F33.41 - Major depressive disorder, recurrent, in partial remission, F43.10 - Post-traumatic stress disorder, unspecified, J45.40 - Moderate persistent asthma, uncomplicated, K21.9 - Gastro-esophageal reflux disease without esophagitis, Z76.89 - Persons encountering health services in other specified circumstances TSH reflex Free T4 Today F33.41 - Major depressive disorder, recurrent, in partial remission, F43.10 - Post-traumatic stress disorder, unspecified, J45.40 - Moderate persistent asthma, uncomplicated, K21.9 - Gastro-esophageal reflux disease without esophagitis, Z76.89 - Persons encountering health services in other specified circumstances Thyroglobulin Antibodies Today Z83.49 - Family history of other endocrine, nutritional and metabolic diseases Lipid Panel Today F33.41 - Major depressive disorder, recurrent, in partial remission, F43.10 - Post-traumatic stress disorder, unspecified, J45.40 - Moderate persistent asthma, uncomplicated, K21.9 - Gastro-esophageal reflux disease without esophagitis, Z76.89 - Persons encountering health services in other specified circumstances Vitamin D 25-OH (D2 and D3) Today F33.41 - Major depressive disorder, recurrent, in partial remission, F43.10 - Post-traumatic stress disorder, unspecified, J45.40 - Moderate persistent asthma, uncomplicated, K21.9 - Gastro-esophageal reflux disease without esophagitis, Z76.89 - Persons encountering health services in other specified circumstances Vitamin B12 Today F33.41 - Major depressive disorder, recurrent, in partial remission, F43.10 - Post-traumatic stress disorder, unspecified, J45.40 - Moderate persistent asthma, uncomplicated, K21.9 - Gastro-esophageal reflux disease without esophagitis, Z76.89 - Persons encountering health services in other specified circumstances Referrals Bariatric Surgery Referral E66.01 - Morbid (severe) obesity due to excess calories FONDANT COOKER Referral Z01.419 - Encounter for gynecological examination (general) (routine) without abnormal findings Medications: New azithromycin Take 2 tablets today then 1 daily 250 mg PO ONCE 6 tabs 0RF 5 days J06.9 - Acute upper respiratory infection, unspecified Changed From fluoxetine 40 mg PO DAILY 90 caps 0RF To fluoxetine 30 mg PO DAILY Refilled fluticasone propion-salmeterol 250-50 mcg/dose (Wixela Inhub) 1 inh inhalation BID 3 multiple units 1RF 90 days albuterol sulfate 90 mcg/actuation 2 puffs inhalation Q4-6H PRN 3 multiple units 0RF shortness of breath or wheezing 90 days J45.41 - Moderate persistent asthma with (acute) exacerbation, R06.2 - Wheezing
[2025-05-27 08:44] VITALS: BP 138/82; PULSE 83; TEMP 36.2; O2SAT 96; BMI 41.3
--- OUTSIDE RECORDS SUMMARY | 2025-05-27 08:53 | XMS_ITS | Continuity of Care Document ---
Author Organization [facility]. If a dditional information is needed, contact Health Information Management at [phone] [address] [place] [address] Phone Care Team Providers Care Rubber Factory Worker Name Role Phone Unavailable Unavailable Unavailable Unavailable Unavailable Unavailable Unavailable Unavailable Unavailable Unavailable Unavailable Unavailable Problems Laryngitis Onset:30-Sep-2022 ROGERS Siddiqui Pharyngitis Onset:30-Sep-2022 ROGERS Siddiqui Renewal of prescription Onset:31-Jul-2022 ROGERS Franklin Allergies and Adverse Reactions No Known Allergies(Allergy) Onset: 04-Dec-2022 Medications FLUoxetine 10 MG Oral Capsul e Start:30-Sep-2022 Q-DANYEL INHALER Start:31-Jul-2022 [id number] 200 ACTUAT albuter ol 0.09 MG/ACTUAT Metered Dose Inhaler [ProAir];1-2 INH Q4H Start:31-Jul-2022 Comments:1-2 PUFF INH Q4H [id number] 200 ACTUAT albuter ol 0.09 MG/ACTUAT Metered Dose Inhaler [ProAir];1 PUFF INH Q4H Start:31-Jul-2022 Comments:1 PUFF INH Q4H As Needed for sob/wheezing
== END 2025-05-27 09:11 | disposition home or self-care (01) ==
PROVIDERS: PCP Internal Medicine; Visit Provider Internal Medicine
DX: Z00.01 Encounter for general adult medical examination with abnormal findings (principal); J45.40 Moderate persistent asthma, uncomplicated; E66.01 Morbid (severe) obesity due to excess calories; Z68.41 Body mass index [BMI] 40.0-44.9, adult; K21.9 Gastro-esophageal reflux disease without esophagitis; F43.10 Post-traumatic stress disorder, unspecified; F33.41 Major depressive disorder, recurrent, in partial remission; Z83.49 Family history of other endocrine, nutritional and metabolic diseases

== ENCOUNTER 2025-07-20 08:20 | Outpatient (AMB) | payer BC, SELFPAY ==
--- OUTSIDE RECORDS SUMMARY | 2025-07-20 08:56 | XMS_ITS | Continuity of Care Document ---
Author Organization [facility]. If a dditional information is needed, contact Health Information Management at [phone] Address [address] [place] [address] Phone Care Team Providers Care Intensive Care Nurse Name Role Phone Unavailable Unavailable Unavailable Unavailable Unavailable Unavailable Unavailable Unavailable Unavailable Unavailable Unavailable Unavailable Problems Pharyngitis Onset:30-Sep-2022 ROGERS Siddiqui Laryngitis Onset:30-Sep-2022 ROGERS Siddiqui Renewal of prescription Onset:31-Jul-2022 ROGERS Franklin Allergies and Adverse Reactions No Known Allergies(Allergy) Onset: 04-Dec-2022 Medications FLUoxetine 10 MG Oral Capsul e Start:30-Sep-2022 Q-DANYEL INHALER Start:31-Jul-2022 [id number] 200 ACTUAT albuter ol 0.09 MG/ACTUAT Metered Dose Inhaler [ProAir];1 PUFF INH Q4H Start:31-Jul-2022 Comments:1 PUFF INH Q4H As Needed for sob/wheezing [id number] 200 ACTUAT albuter ol 0.09 MG/ACTUAT Metered Dose Inhaler [ProAir];1-2 INH Q4H Start:31-Jul-2022 Comments:1-2 PUFF INH Q4H
--- OUTSIDE RECORDS SUMMARY | 2025-07-20 08:57 | XMS_ITS | Clinical Summary ---
Author Organization [facility] Address [address] [place] [address] Care Team Providers Care Airdrop Systems Technician Name Role Phone No, Pcp MD Primary Care Provider Unavailabl e Allergies No known active allergies Family History Medical History Relation Name Comments Tongue cancer Paternal Uncle Relation Name Status Comments Paternal Uncle Alive Social History Tobacco Use Types Packs/Day Years Used Date Smoking Tobacco: Unknown Tobacco Cessation:Counseling Given: Not Answered Comments Unknown Sex and Gender Information Value Date Recorded Sex Assigned at Not on file Legal Sex Female 10:46 AM EST Gender Identity Not on file Sexual Orientation Not on file Last Filed Vital Signs Vital Sign Reading Time Taken Comments Blood Pressure 127/69 11/27/2023 4:47 PM EST Pulse 60 11/27/2023 4:47 PM EST Temperature 36.6 C (97.9 F) 11/27/2023 4:47 PM EST Respiratory Rate 18 11/27/2023 4:47 PM EST Oxygen Saturation 99% 11/27/2023 4:47 PM EST Inhaled Oxygen Concentration - - Weight - - Height - - Body Mass Index - - Plan of Treatment Health Maintenance Due Date Last Done Comments MMR VACCINES (1 of 1 - Stand celina series) 1999 DTAP/TDAP/TD VACCINES (1 - Tdap) 2005 VARICELLA VACCINES (1 of 2 - 13+ 2-dose series) 2011 HEPATITIS C SCREENING 2015 HEPATITIS B VACCINES (1 of 3 - 19+ 3-dose series) 2017 Cervical Cancer Screening 2019 Pap Smear 2019 COVID-19 IMMUNIZATION (1 - 2 season) 2024 INFLUENZA VACCINE (#1) 2025 ZOSTER VACCINE (1 of 2) 2048 RSV IMMUNIZATION (1 - 1-dose 75+ series) 2073 HEPATITIS A VACCINES Aged Out No long er eligible based on patient's age to complete this topic HIB VACCINES Aged Out No longer eligi ble based on patient's age to complete this topic HPV VACCINE Aged Out No longer eligi ble based on patient's age to complete this topic IPV VACCINES Aged Out No longer eligi ble based on patient's age to complete this topic MENINGOCOCCAL ACYW VACCINE Aged Out N o longer eligible based on patient's age to complete this topic MENINGOCOCCAL B VACCINE Aged Out No l onger eligible based on patient's age to complete this topic PNEUMOCOCCAL VACCINE Aged Out No long er eligible based on patient's age to complete this topic ROTAVIRUS VACCINES Aged Out No longer eligible based on patient's age to complete this topic Insurance [facility] [place] [id number] [employer] O[employer] Care Teams Airdrop Systems Technician Relationship Specialty Start Date End Date No, PcpMD No Address [place] [address] PCP - General 11/27/23
--- NOTE | 2025-07-20 12:10 | MHC.OFFVISWM ---
VS Expanded 07/20/25 12:22 Height 5 ft 4 in Weight 235 lb 8 oz BMI 40.4 Body Fat % 42.1 Body Fat Mass 99.2 Fat Free Mass 136.4 Visceral Fat Rating 10 Body Water % 41.6 Body Water Mass 98.2 Basal Metabolic Rate/Score 1,937 Intake Visit Reasons: [facility] vs M[facility] BMI 40.5 Allergies No Known Allergies Allergy (Verified 07/20/25 12:10) Medication List - Last Reconciled 07/20/25 by Enrique Rincon MD albuterol sulfate 90 mcg/actuation 2 puffs inhalation Q4-6H PRN 90 days albuterol sulfate 90 mcg/actuation 2 puffs inhalation Q6H PRN beclomethasone dipropionate 80 mcg/actuation mcg inhalation dextroamphetamine-amphetamine 10 mg ER 15 mg PO QAM PRN fluoxetine 30 mg PO DAILY fluticasone propion-salmeterol 250-50 mcg/dose (Wixela Inhub) 1 inh inhalation BID 90 days HPI HPI [facility] SW[facility] vs MWL BMI 40.5: Details: Start time: 12pm, End time: 12.51pm ?I spent 46 minutes speaking with the patient on the phone plus an additional 5 minutes reviewing and updating records for a total of 51 minutes HPI Comments Details: Previous weight loss efforts: Calorie counting, Juancho tracking Wakes up: 7am, Sleeps: 11pm Breakfast: skips Lunch: 11.30am-1pm (turkey and cheese sandwiches) Dinner: 6pm (chicken, pasta squash with feta, steaks) Snacks: 9am (Oikos Pro x1-2), 8pm (occ ice cream) Exercise: has Gym membership Beverages: Coffee: (2-3 cups/d plain), Tea: 1/wk plain, Soda: none, Juice: none, ETOH: 1/wk ([place] with ETOH) PFSH Medical History (Updated 07/20/25 @ 12:15 by Enrique Rincon MD) Asthma Wheezing on auscultation Surgical History (Updated 06/27/25 @ 14:48 by Jacqueline Ventura CMA) Hx of foot surgery Family History (Updated 06/27/25 @ 14:49 by Jacqueline Ventura CMA) Maternal Uncle Substance use disorder Mother Anemia Father Asthma Social History (Updated 06/27/25 @ 14:48 by Jacqueline Ventura CMA) Housing: House Alcohol intake: former Patient Tobacco Use Status: Never used Tobacco e-Cigarette/Vaping Use: Never Used Substance Use Type: Marijuana service: No Cognitive needs: No Hearing needs: No Vision needs: No Telehealth Telehealth Telehealth Platform: Telephone Location of provider rendering services: practice address Location of patient: address on file Patient Identification confirmed using: Name, : Yes Telehealth method: voice only Patient verbally consented to treatment: Yes Patient verbally consented to billing insurance company: Yes Patient informed of any privacy concerns related to visit: Yes Minutes spent on Phone/Video with Pt.: 51 Assessment & Plan Assessment & Plan (1) Morbid obesity due to excess calories: Code(s): E66.01 - Morbid (severe) obesity due to excess calories Category: Medical Plan: 1. Nutritional counseling. Start with one premade Core power protein (buy at [employer] or [employer]) shake (mix 4oz of Core power mixed with 4oz low fat unsweetened almond milk each) at 8am-10am, one protein bar (Fit Crunch protein bar, buy at [employer], or [employer]) at 11am-1pm, another premade Core power protein shake (mix 4oz of Core power mixed with 4oz low fat unsweetened almond milk each) at 2pm-4pm, dinner at 5pm (8 forks of protein and 8 forks of salad/vegetables) and another Fit Crunch protein bar at 7pm-9pm. So you do 2 protein shakes, 2 protein bars and one meal per day. Meal to include lean meat (beef, fish, pork, turkey, chicken), or nauruan yogurt, or egg whites, or beans with a salad with olive oil and fruits (berries, pears, apples, kiwi). Avoid salt, breads, potatoes, rice, pasta, desserts. 2. Each shake would be drunk slowly, like coffee in a period of 2 hours. 3. Cut each bar in 4 pieces and eat each piece in 30min ?to make each bar last 2 hours. 4. I emphasized the importance of measuring accurately the food portion and measure it when serving the food in plate 5. The meal portions include 8 full-size forks of meat and 8 full-size forks of salad. You always eat the meat portion but you can replace up to 5 forks for salad/vegetables with rice, potatoes or pasta, or a fruit ?if you like. The less you do it the better weight loss will be. 6. One full-size fork is what it can be scooped on the fork without falling aside and not what can be bit with the fork. Use regular forks like those you find in a typical restaurant. 7.? Please buy the body composition scale we discussed and send me weight measurements as soon as possible and then once a week. Always include your diet and exercise plan. 8. Start treadmill with an incline of 2.0 and speed of 3.0. Increase incline by 1 every 3 min to a max incline of 8.0, stay 3min at 8.0 and then return to 2.0 and repeat same steps until calorie goal is met. Goal is to burn 2000 calories per week on exercise, which means either 300 calories daily, or 400 calories 5 days per week, or 500 calories 4 days per week, or 650 calories 3 days per week. 9. Goal is to lose at least 1.5-2lbs per week 10. Goal to lose at least 10% of your weight, which is about 25lbs. Minimum weight goal: 210lbs 11. Please follow the diet plan exactly without any change. If you don't like something about the plan or you feel hungry you need to communicate with me so I can help you revise the plan. You should not change the plan yourself
[2025-07-20 12:22] VITALS: BMI 40.4
== END 2025-07-20 12:51 | disposition home or self-care (01) ==
LOC: HO.HBS 08:20
PROVIDERS: PCP Internal Medicine; Visit Provider Surgery
DX: E66.01 Morbid (severe) obesity due to excess calories (principal); Z68.41 Body mass index [BMI] 40.0-44.9, adult
CPT/HCPCS: 99204

== ENCOUNTER 2025-10-12 07:05 | Outpatient (AMB) | payer BC, SELFPAY ==
--- OUTSIDE RECORDS SUMMARY | 2025-10-12 07:08 | XMS_ITS | Clinical Summary ---
Author Organization [facility] Address [address] [place] [address] Care Team Providers Care Social Services Name Role Phone No, Pcp MD Primary [...] Cervical Cancer Screening 2019 Pap Smear 2019 INFLUENZA VACCINE (#1) 2025 COVID-19 IMMUNIZATION (1 - 2 season) 2025 ZOSTER VACCINE (1 of 2) 2048 [...] patient's age to complete this topic Insurance [facility] [place] [address] [employer] OOS Care Teams Social Services Relationship Specialty Start Date End Date No, PcpMD No Address [place] [address] PCP - General 11/27/23
--- NOTE | 2025-10-12 07:09 | AM.OFFWIN_ITS ---
Intake Vital Signs 10/12/25 07:14 Height 5 ft 4 in Weight 235 lb BMI 40.3 BP 116/74 Blood Pressure Location Lt brachial Position Sitting Pulse 100 Pulse Source Pulse Oximeter Temp 98.2 F Temp Source Oral Pulse Oximetry (%) 93 Oxygen Delivery Method Room Air Intake Visit Reasons: ep having a hard time with her asthma Intake Note: Patient presents with chest congestion, chest tightness, difficulty breathing, dry cough at night x4 days. Patient has been using inhalers & nebulizer with short term relief. Patient Tobacco Use Status: Never used Tobacco Allergies No Known Allergies Allergy (Verified 10/12/25 07:13) HPI HPI Comments History of Present Illness Details Patient is a 25yo F with hx of asthma who presents with dyspnea Ongoing x 4 days Worsening asthma symptoms with cough Cough wet during day and dry at night Has tried at home inhalers and nebulizers without relief Has also tried NyQuil and Clorcidine cough medicine without relief Last neb dose used last night Worse with exertion Nebulizer names better for 30 minutes + slight congestion and sinus pressure No ear pain + ST with cough + chest ache with coughing + chest feels tight Similar to long standing asthma symptoms No other complaints Denies chance of [facility] Medical History (Updated 10/12/25 @ 07:35 by Aurelia Browning PA-C) Asthma Wheezing on auscultation Surgical History (Updated 06/27/25 @ 14:48 by Jacqueline Ventura CMA) Hx of foot surgery Family History (Updated 06/27/25 @ 14:49 by Jacqueline Ventura CMA) Maternal Uncle Substance use disorder Mother Anemia Father Asthma Social History (Updated 06/27/25 @ 14:48 by Jacqueline Ventura CMA) Housing: House Alcohol intake: former Patient Tobacco Use Status: Never used Tobacco e-Cigarette/Vaping Use: Never Used Substance Use Type: Marijuana service: No Cognitive needs: No Hearing needs: No Vision needs: No Review of Systems Const Denies chills and Denies fever(s) ENT Reports nasal congestion and Reports sore throat Card Denies chest pain at rest and Reports dyspnea Resp Reports chest congestion, Reports cough, Denies hemoptysis, Reports pain with cough and Reports dyspnea GI Denies vomiting Musc Denies myalgias Skin/Breast Denies erythema and Denies rash Physical Exam Exam Exam: General: Non-toxic, NAD. Speaking full sentences, no stridor Skin: Warm dry throughout Eye: EOMI HENT: Airway patent. Uvula midline. No pharyngeal erythema or edema. No PORTFOLIO DIRECTOR. Bilateral canals clear. TM non-erythematous, non-bulging. No TM perforation or hemotympanum noted. Respiratory: + tight with little movement. No accessory muscle use. No wheeze or rhonchi appreciated Cardiac: RRR. No murmur MSK: Full ROM extremities. Neurology: Alert. No aphasia or facial droop. Gait without abnormality Psych: Good mood and affect Vital Signs: Last Vital Signs Temp 98.2 F 10/12/25 07:14 Pulse 100 10/12/25 07:14 BP 116/74 10/12/25 07:14 Pulse Ox 93 10/12/25 07:14 Oxygen Delivery Method Room Air 10/12/25 07:14 BMI result Body Mass Index 40.3 Office Procedures Nebulizer Treatment Nebulizer Treatment [id number]/MDI RX initial, or Nebulizer Subsequent Treatment Office Meds ipratropium 0.5 mg-albuterol 3 mg (2.5 mg base)/3 mL nebulization soln Performing Provider: Aurelia Browning PA-C Performing Location[place] [facility] Administered by: Saranya Jacob RN on 10/12/25 07:37 Dose Route Admin Location Dispensed Lot Number Expiration Date [facility] Lacing String Cutter 3 mL inhalation 3 mL 25H06/30/27 [id number] [employer] Assessment & Plan Assessment & Plan (1) Asthma exacerbation: Code(s): J45.901 - Unspecified asthma with (acute) exacerbation Qualifiers: Asthma persistence: persistent Asthma severity: moderate Qualified Code(s): J45.41 - Moderate persistent asthma with (acute) exacerbation Plan: Patient seen and evaluated. She has no accessory muscle use or tripoding. Her O2 is 93% on RA. Will administer a duoneb and re-evaluate. Re-evaluated and O2 is 97% and breathing improved with slight decrease at R base noted. Azithromycin and Prednisone to be discharged with Continue rescue and nebulizer at home; given refills on meds needed. F/U with PCP ER if any worsening symptoms Patient gave verbal understanding and had no additional questions or concerns at time of discharge All questions answered Orders: Orders AMB Nebulizer Treatment Today J45.901 - Unspecified asthma with (acute) exacerbation Medications: New prednisone 40 mg (2 x 20 mg) PO DAILY 10 tabs 0RF azithromycin For 250 mg dose pack: take 500 mg today (day 1), then 250 mg for 4 days (days 2-5) PO 6 tabs 0RF fluticasone propion-salmeterol 250-50 mcg/dose (Wixela Inhub) 1 inh inhalation BID 60 ea 0RF Refilled albuterol sulfate 90 mcg/actuation 2 puffs inhalation Q4-6H PRN 3 multiple units 0RF shortness of breath or wheezing 90 days J45.41 - Moderate persistent asthma with (acute) exacerbation, R06.2 - Wheezing Coding Level of Care Code Est Pt Level 4 (38322) Diagnoses Moderate persistent asthma with exacerbation J45.41 Asthma persistence: persistent Asthma severity: moderate CPT Codes Nebulizer Treatment - Nebulizer Treatment, initial or subsequent: 71511- Nebulizer/MDI RX initial, or Nebulizer Subsequent Treatment ([id number])
[2025-10-12 07:14] VITALS: BP 116/74; PULSE 100; TEMP 36.8; O2SAT 93; BMI 40.3
== END 2025-10-12 08:01 | disposition home or self-care (01) ==
PROVIDERS: PCP Internal Medicine; Visit Provider Physician Assistant
DX: J45.41 Moderate persistent asthma with (acute) exacerbation (principal); J45.901 Unspecified asthma with (acute) exacerbation

== ENCOUNTER → 2025-10-12 07:05 | Outpatient (BNVA) | payer BC, SELFPAY | PROVIDERS: PCP Internal Medicine; Supervising Provider Physician Assistant; Visit Provider Physician Assistant | DX: M76.892 Other specified enthesopathies of left lower limb, excluding foot (principal); J45.41 Moderate persistent asthma with (acute) exacerbation | CPT/HCPCS: 94640; 99212 ==

== ENCOUNTER 2025-10-12 13:31 | Outpatient (AMB) | payer OTHER, SELFPAY ==
--- NOTE | 2025-10-12 13:32 | MHC.OFFWIV ---
Intake Vital Signs 10/12/25 13:38 Height 5 ft 4 in Weight 235 lb BMI 40.3 BP 116/74 Blood Pressure Location Lt brachial Position Sitting Pulse 100 Pulse Source Pulse Oximeter Temp 98.2 F Temp Source Oral Pulse Oximetry (%) 93 Oxygen Delivery Method Room Air Intake Visit Reasons: EP Left knee pain after work injury Intake Note: Patient presents c/o left knee pain due to work injury. Patient Tobacco Use Status: Never used Tobacco Allergies No Known Allergies Allergy (Verified 10/12/25 13:39) Do you need a note to return to daycare/school/sports/work: Yes HPI EP Left knee pain after work injury HPI Details 25-year-old female patient presents to the walk-in clinic today with report of pain at the top of her left knee following a work incident. 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 Since then, she has had pain with any flexion of knee past 90 degrees, most significant when climbing stairs, or sitting down from a standing position. She has taken ibuprofen and applied some ice with some minor benefit. She is concerned about going to work with this injury, since she frequently must squat down to assist children. Of note, she was seen at walk-in this morning for respiratory issues/asthma exacerbation. She was prescribed steroids and albuterol inhaler. [facility] Medical History Asthma Wheezing on auscultation Surgical History Hx of foot surgery Family History Maternal Uncle Substance use disorder Mother Anemia Father Asthma Social History Housing: House Alcohol intake: former Patient Tobacco Use Status: Never used Tobacco e-Cigarette/Vaping Use: Never Used Substance Use Type: Marijuana service: No Cognitive needs: No Hearing needs: No Vision needs: No Review of Systems Const All systems reviewed & are unremarkable except as noted in HPI and below Physical Exam Vital Signs: Last Vital Signs Temp 98.2 F 10/12/25 13:38 Pulse 100 10/12/25 13:38 BP 116/74 10/12/25 13:38 Pulse Ox 93 10/12/25 13:38 Oxygen Delivery Method Room Air 10/12/25 13:38 BMI result Body Mass Index 40.3 Const General: cooperative and no acute distress Limitations: no limitations Resp Effort & Inspection: normal respiratory effort Skin General skin exam: no rashes or lesions noted Neuro General: no focal motor deficits and deep tendon reflexes 2+ bilaterally Extrem Other: Pain/TTP at distal quad tendon/Vastus intermedius. No swelling, erythema. No joint enlargement or edema. Knee exam and ligametnts appear normal on exam. Pain at quad tendon with knee flexion >90 degrees. Psych Appearance: grossly normal Mental Status: mental status grossly normal Speech and movement: Normal speech and movement present Assessment & Plan Assessment & Plan (1) Tendinitis of left quadriceps tendon: Code(s): M76.892 - Other specified enthesopathies of left lower limb, excluding foot Plan: Symptoms likely represent left quad tendinitis. Cristobal wrap applied, and patient and I discussed conservative measures of treatment at this time, including rest, ice application, NSAID use. I will prescribe her a short course of meloxicam to see if this provides benefit. We reviewed indications, use, possible side effects of this. I provided her with a work note. If pain persists beyond a few days and with use of conservative treatment methods, patient should be re-evaluated at clinic or with PCP and likely would benefit from course of physical therapy. Patient verbalizes understanding and agrees to plan. Medications: New meloxicam 15 mg PO DAILY 7 tabs 0RF 7 days M76.892 - Other specified enthesopathies of left lower limb, excluding foot Coding Level of Care Code Est Pt Level 4 (79357) Diagnoses Tendinitis of left quadriceps tendon M76.892
[2025-10-12 13:38] VITALS: BP 116/74; PULSE 100; TEMP 36.8; O2SAT 93; BMI 40.3
--- OUTSIDE RECORDS SUMMARY | 2025-10-12 16:23 | XMS_ITS | Clinical Summary ---
Author Organization [facility] Address [address] [place] [address] Care Team Providers Care Forming Process Worker Name Role Phone No, Pcp MD Primary [...] patient's age to complete this topic Insurance [facility] [place] [address] [employer] O[employer] Care Teams Forming Process Worker Relationship Specialty Start Date End Date No, PcpMD No Address [place] [address] PCP - General 11/27/23
== END 2025-10-12 14:09 | disposition home or self-care (01) ==
PROVIDERS: PCP Internal Medicine; Visit Provider Nurse Practitioner Family
DX: M76.892 Other specified enthesopathies of left lower limb, excluding foot (principal)